=== PATIENT | male | born 1970 | race Caucasian/White ===

== ENCOUNTER 2020-03-11 06:29 | Day surgery (SDC) | payer OTHER, SELFPAY ==
[2020-03-07 08:22] VITALS: BMI 21.1
--- NOTE | 2020-03-10 08:34 | P.CONAN_ITS ---
Documented by User: Stephenie Martin 03/10/20 08:34 HPI - Anesthesia Eval Consult details Narrative: 49yo M for Upper Endoscopy [facility] Past Medical History Medical History Chronic ear infection Hyperlipidemia Renal stones Surgical History Surgical History Hx of colonoscopy S/p bilateral myringotomy with tube placement Status post laser lithotripsy of ureteral calculus Social History Social History Smoking Status: Unknown if ever smoked Use of substances other than those prescribed or required for medical reasons: No Advance Directives: No Advance Directives Information Provided: No Advance Directives on File: No Meds Allergies Allergy/AdvReac Type Severity Reaction Status Date / Time No Known Allergies Allergy Verified 03/11/20 06:43 Home Medications Medication Instructions Recorded Confirmed Type cholecalciferol (vitamin D3) 25 mcg PO DAILY 03/07/20 03/07/20 History [Vitamin D3] Exam Exam Date and Time: March 10, 2020 0834 Height,Weight and Vital Signs: Height 5 ft 7 in Weight 61.235 kg Assessment and Plan Assessment Anesthesia Assessment: Chart Reviewed Documented by User: Kecia Ivey 03/11/20 07:19 [facility] Past Medical History Medical History Chronic ear infection Hyperlipidemia Renal stones Surgical History Surgical History Hx of colonoscopy S/p bilateral myringotomy with tube placement Status post laser lithotripsy of ureteral calculus Social History Social History Smoking Status: Unknown if ever smoked Use of substances other than those prescribed or required for medical reasons: No Advance Directives: No Advance Directives Information Provided: No Advance Directives on File: No Meds Allergies Allergy/AdvReac Type Severity Reaction Status Date / Time No Known Allergies Allergy Verified 03/11/20 06:43 Home Medications Medication Instructions Recorded Confirmed Type cholecalciferol (vitamin D3) 25 mcg PO DAILY 03/07/20 03/07/20 History [Vitamin D3] Exam Airway Mallampati Class: I (Multiple caps) TM Dist: >3cm Neck ROM: Full Heart: RRR Lungs: CTA BL Assessment and Plan Assessment Anesthesia Assessment: Anesthesia Plan Discussed and Chart Reviewed Final Anesthetic Review NPO: Yes ASA Class: II Final Preanesthetic Review: Meds/Librado Chart Reviewed and Consent Obtained/Reviewed Patient Risk: Intermediate Procedure Risk: Intermediate Anesthetic Plan Anesthetic Plan: MAC: Disposition: Standard PACU
[2020-03-11 06:56] VITALS: BP 97/66; PULSE 66; RESP 18; TEMP 37; O2SAT 100
[2020-03-11] MEDS: Lactated Ringers 1,000 ML 100 ML IVCONT (07:02)
[2020-03-11 07:54] VITALS: BP 88/52; PULSE 65; RESP 13; TEMP 36.2; O2SAT 93
--- NOTE | 2020-03-11 08:01 | PM.OP ---
Brief Operative Note Date of Service: 03/11/20 Pre-op diagnosis: GERD Post-op diagnosis: other (Minimal hiatal hernia) Procedure: EGD with biopsy Surgeon: Chandu Ledesma Anesthesia: MAC Estimated blood loss (mL): 2.0 Pathology: other (A. EG Junction at 40cm) Condition: stable Disposition: PACU
[2020-03-11 08:12] VITALS: BP 92/62; PULSE 70; RESP 16; O2SAT 97
--- NOTE | 2020-03-11 08:25 | OP_ITS ---
SURGEON: Chandu Ledesma MD INDICATIONS: The patient presents for evaluation of gastroesophageal reflux. Full consent was obtained from him for this, including risks of bleeding and perforation. PREOPERATIVE DIAGNOSIS: Gastroesophageal reflux. POSTOPERATIVE DIAGNOSIS: PROCEDURE PERFORMED: Esophagogastroduodenoscopy with biopsies. ESTIMATED BLOOD LOSS: COMPLICATIONS: ANESTHESIA: Monitored anesthesia care. ASSISTANTS: SPECIMENS: POSTOPERATIVE DIAGNOSES: 1. Gastroesophageal reflux. 2. Minimal hiatal hernia. DESCRIPTION OF PROCEDURE: The patient was placed in the left lateral decubitus position. The Olympus video gastroscope was passed in the posterior oropharynx and upper esophagus under direct vision. The scope was passed slowly into the distal esophagus. The gastroesophageal junction appeared at 40 cm. There was a very minimal irregularity at this area, but no evidence of esophagitis nor any definitive evidence of Brock's mucosa. There was evidence of a minimal hiatal hernia. The scope entered into the stomach and was advanced to the pylorus. The duodenum was cannulated to the descending portion. The duodenum including the bulb appeared normal without mass or ulceration. The scope was withdrawn back in the stomach. The gastric antrum and body appeared normal with good peristalsis. The scope was retroflexed visualizing the proximal stomach carefully, which appeared normal, without any mass or ulceration. The scope was straightened and withdrawn back to the esophagus. Biopsies were obtained at the EG junction at 40 cm. Proximal to this, the esophageal mucosa appeared normal. The scope was withdrawn from the patient. He tolerated procedure well and was returned to the recovery area in stable condition. IMPRESSION: Minimal hiatal hernia and minimal changes of possible gastroesophageal reflux. PLAN: The results of biopsy will be checked. At this point, he is asymptomatic in regard to any reflux. The concern had been his tooth decay and whether he was having some silent reflux. The results of the biopsies will be checked and if there is evidence of Brock's mucosa, then we could consider putting him on a PPI, but he is otherwise presently entirely asymptomatic, so I am somewhat hesitant to commit him to acid suppression long-term without any symptomatology nor significant endoscopic findings. The other option would be to undergo a pH study at some point to try to document acid reflux. He will be seen in followup in the office in this regard to discuss things. This has been discussed with his . MD MARIAH Fernandez/WILMA / [id number]
--- NOTE | 2020-03-11 08:32 | HO.POSTANES ---
Post Anesthesia Evaluation Post Anesthesia Evaluation Vital Signs: Vital Signs Temp Pulse Resp BP Pulse Ox 03/11/20 08:12 97.1 F 70 16 92/62 97 03/11/20 07:54 97.1 F 65 13 88/52 L 93 03/11/20 06:56 98.6 F 66 18 97/66 100 Anesthesia: Monitored Mental Status: Awake Pain Control: Satisfactory Nausea/Vomiting: None Hydration: Adequate Anesthesia-Related Issues: No Anes. Related Issues
== END 2020-03-11 09:01 | disposition home or self-care (01) ==
PROVIDERS: PCP Internal Medicine; Visit Provider Internal Medicine
PROC: 0DJ08ZZ Inspection of Upper Intestinal Tract, Via Natural or Artificial Opening Endoscopic (ICD-10-PCS; CPT 43235; principal; 2020-03-11 07:30)
DX: K21.00 Gastro-esophageal reflux disease with esophagitis, without bleeding (principal); K44.9 Diaphragmatic hernia without obstruction or gangrene; K02.9 Dental caries, unspecified
CPT/HCPCS: 43239; 88305